=== PATIENT | female | born 1965 | race Caucasian/White ===

== ENCOUNTER → 2019-10-28 08:28 | Outpatient (CLI) | payer OTHER, SELFPAY ==
--- NOTE | ~2019-10-28 | XR_ITS ---
XR knee RT 3V DATE: 10/28/2019 09:04 INDICATION: Patient fell onto right knee 3 weeks ago. Subpatellar knee pain. TECHNIQUE: [place], AP and lateral views COMPARISON: None FINDINGS: No fracture or dislocation or joint effusion, periosteal reaction or bone destruction, join t space narrowing, radiopaque intra-articular loose body or chondrocalcinosis is evident. The patella is situated in a relatively superior position; recommend clinical correlation IMPRESSION: Relatively superior position of patella; recommend clinical correlation. Otherwise no fra cture or dislocation Reviewed, dictated and finalized at location A. IMPRESSION: Relatively superior position of patella; recommend clinical correla tion. Otherwise no fracture or dislocation
== END ==
PROVIDERS: PCP Physician Assistant; Visit Provider Physician Assistant
DX: M25.561 Pain in right knee (principal)
CPT/HCPCS: 73562

== ENCOUNTER → 2023-04-19 09:56 | Outpatient (CLI) | payer OTHER, SELFPAY ==
--- NOTE | ~2023-04-19 | MR_ITS ---
MRI of the left ankle Clinical history: Plantar fasciitis Technique: Coronal proton-density and proton-density fat-sat images, axial proton-density and proton- density fat-sat images, and sagittal proton-density and proton-density fat-sat images were acquired. Findings: Syndesmotic ligaments are intact. Anterior and posterior talofibular ligaments, and calcane ofibular ligament are intact. Deltoid ligament is intact. Medial flexor tendons, peroneal tendons, anterior extensor tendons, and Achilles tendon are intact. There is no osteochondral lesion of the talar dome. Bone marrow signals and joint spaces are intact. There is thickening and increased signal of the plantar fascia at the calcaneal origin, with running soft tissue edema. There is normal signal within the sinus Tarsi. No soft tissue mass or fluid collec tion seen. Impression: Findings consistent with plantar fasciitis, as detailed above. Reviewed, dictated and finalized at [facility]. R WAXER Impression: Findings consistent with plantar fasciitis, as detailed above.
== END ==
PROVIDERS: PCP Podiatrist Foot & Ankle Surgery; Visit Provider Podiatrist Foot & Ankle Surgery
DX: M72.2 Plantar fascial fibromatosis (principal)
CPT/HCPCS: 73721